=== PATIENT | male | born 1950 | race Caucasian/White ===

== ENCOUNTER 2022-01-20 22:02 | Emergency (ER) | payer MEDICARE ==
[2022-01-20 23:12] LABS: #Eosinphils 0.1 thou/uL (0.0-0.7); #Lymphocytes 0.9 thou/uL (1.20-3.40); #Monocytes 1.1 thou/uL (0.11-0.59); #Neutrophils 6.5 thou/uL (1.40-6.50); %Basophils 0.2 % (0.0-1.0); %Eosinophils 1.7 % (0.0-10.0); %Lymphocytes 9.9 % (21.0-51.0); %Neutrophils 75.2 % (42.0-75.0); Hemoglobin 14.4 g/dL (14.0-18.0); Mean Corpuscular HGB CONC 33.3 g/dL (32.0-36.0); Mean Corpuscular Volume 92.9 fL (78.0-98.0); Mean Platelet Volume 6.8 fL (7.4-10.4); Platelet Count 218 thou/uL (130-400); RBC Distribution Width 13.6 % (11.5-14.5); Red Blood Cell (RBC) Count 4.65 mill/uL (4.70-6.10); White Blood Cell (WBC) Count 8.7 thou/uL (4.8-10.8)
[2022-01-20 23:36] LABS: ALT (SGPT) 32 U/L (8-55); AST (SGOT) 27 U/L (5-34); Albumin 3.6 g/dL (3.4-4.8); Alkaline Phosphatase 77 U/L (40-110); Anion Gap 14 mmol/L (10-20); BUN (Urea Nitrogen) 21 mg/dL (8.4-25.7); Bilirubin, Total 0.6 mg/dL (0.2-1.2); Calc. Creatinine Clearance 0 mL/min (70-130); Calcium 8.6 mg/dL (7.8-10.44); Carbon Dioxide 26 mmol/L (23-31); Chloride 106 mmol/L (98-107); Globulin 2.5 g/dL (2.4-3.5); Glucose 95 mg/dL (83-110); Potassium 3.5 mmol/L (3.5-5.1); Protein, Total 6.1 g/dL (5.8-8.1); Sodium 142 mmol/L (136-145)
== END 2022-01-21 00:55 | disposition home or self-care (01) ==
LOC: ERS 22:02
DX: I95.9 Hypotension, unspecified (principal); E78.5 Hyperlipidemia, unspecified; Z79.899 Other long term (current) drug therapy
CPT/HCPCS: 36415; 71046; 80053; 84484; 85025; 93005; 96360

== ENCOUNTER 2022-11-11 12:22 | Outpatient (CLI) | payer MEDICARE, OTHER | END 2022-11-11 12:23 | disposition home or self-care (01) | LOC: SCSMRI 12:22 | PROVIDERS: ATTEND Orthopaedic Surgery | DX: M89.8X8 Other specified disorders of bone, other site (principal); M16.0 Bilateral primary osteoarthritis of hip; K46.9 Unspecified abdominal hernia without obstruction or gangrene | CPT/HCPCS: 72197; 82565 ==

== ENCOUNTER 2024-02-29 14:54 | Outpatient (CLI) | payer MEDICARE, OTHER | END 2024-02-29 14:55 | disposition home or self-care (01) | LOC: SCSRAD 14:54 | PROVIDERS: ATTEND Nurse Practitioner Family | DX: S99.911A Unspecified injury of right ankle, initial encounter (principal) ==

== ENCOUNTER 2024-06-06 11:08 | Outpatient (CLI) | payer MEDICARE, OTHER | END 2024-06-06 11:09 | disposition home or self-care (01) | LOC: SCSRAD 11:08 | PROVIDERS: ATTEND Family Medicine | DX: S89.91XA Unspecified injury of right lower leg, initial encounter (principal) ==